=== PATIENT | male | born 1970 | race Caucasian/White ===

== ENCOUNTER 2017-12-07 17:50 | Emergency (ER) | payer SELFPAY ==
[~2017-12-07] VITALS: Ht 177.8 cm; Wt 79.1 kg
[2017-12-07 17:52] VITALS: BP 137/84; Ht 177.8 cm; Wt 79.1 kg
== END 2017-12-07 23:05 | disposition left against medical advice (07) ==
LOC: D.ER 17:50
DX: M25.512 Pain in left shoulder (principal)

== ENCOUNTER → 2018-04-23 09:55 | Outpatient (CLI) | payer OTHER ==
[2017-12-07 17:52] VITALS: BMI 25.0
== END | disposition home or self-care (01) ==
LOC: D.MRI 09:55
DX: M25.511 Pain in right shoulder (principal)